=== PATIENT | male | born 1955 | race Caucasian/White ===

== ENCOUNTER 2017-02-03 13:44 | Emergency (ER) | payer BC ==
--- NOTE | 2017-02-03 14:30 | ERPHSYRPT ---
- History of Present Illness Time Seen by Provider: 02/03/17 14:14 Source: patient Exam Limitations: no limitations Patient Subjective Stated Complaint: states went off xanax recently and started on paxil last night. today feel nervous and b/p up at home. Triage Nursing Assessment: ambulated to room per self without difficulty. skin w/d, color normal, resp easy. mena without difficulty. chris. a/o times three. Physician History: The patient is a 62-year-old male complaining of feeling "bad" today. He's had some nausea. He feels a little bit uneasy. He took his blood pressure and it was elevated to 200/110. He's been taking Xanax 0.25 mg 3 times a day for several weeks due to increased stress. He saw his doctor who put him on paroxetine. He did not take any Xanax yesterday and took his first dose approximately last night. Today he doesn't feel well. He states that he panicked and came to the hospital. His past medical history is significant for anxiety, hypertension. Timing/Duration: today, improved Severity: moderate Modifying Factors: Improves With: nothing Associated Symptoms: nausea, other (anxiety) Allergies/Adverse Reactions: meperidine [From Demerol] Allergy (Verified 02/03/17 14:04) Penicillins Allergy (Verified 02/03/17 14:04) Sulfa (Sulfonamide Antibiotics) Allergy (Verified 02/03/17 14:04) Home Medications: Buspirone HCl 5 mg [Buspar 5 mg] 5 mg PO BID 02/03/17 [History] Carvedilol 12.5 mg [Coreg 12.5 mg] 12.5 mg PO BID 02/03/17 [History] Diltiazem HCl 120 mg [Cardizem CD 120 MG] 120 mg PO HS 02/03/17 [History] Meloxicam 15 mg [Meloxicam 15 MG] 15 mg PO DAILY 02/03/17 [History] Mv-Mn/FA/Lycopene/Lut/Hb#178 [Aubrey Multi For Men Tablet] 1 each PO DAILY [History] Paroxetine HCl [Paxil] 10 mg PO HS 02/03/17 [History] Hx Tetanus, Diphtheria Vaccination/Date Given: No Hx Influenza Vaccination/Date Given: No Hx Pneumococcal Vaccination/Date Given: No - Review of Systems Constitutional: No Fever, No Chills Eyes: No Symptoms Ears, Nose, & Throat: No Symptoms Respiratory: No Cough, No Dyspnea Cardiac: No Chest Pain, No Edema, No Syncope Abdominal/Gastrointestinal: Nausea Genitourinary Symptoms: No Dysuria Musculoskeletal: No Back Pain, No Neck Pain Skin: No Rash Psychological: Anxiety Endocrine: No Symptoms Hematologic/Lymphatic: No Symptoms Immunological/Allergic: No Symptoms All Other Systems: Reviewed and Negative - Past Medical History Pertinent Past Medical History: Yes Cardiac History: Hypertension Respiratory History: Emphysema Musculoskeletal History: Arthritis Psycho-Social History: Anxiety, Depression Male Reproductive Disorders: Prostate Problems - Past Surgical History Past Surgical History: Yes Other Surgical History: sinus surgery, testicle surgery - Social History Smoking Status: Former smoker Exposure to second hand smoke: No Drug Use: none Patient Lives Alone: Yes - Nursing Vital Signs Nursing Vital Signs: Initial Vital Signs Temperature 97.6 F 02/03/17 13:57 Pulse Rate 78 02/03/17 13:57 Respiratory Rate 15 02/03/17 13:57 Blood Pressure 166/89 02/03/17 13:57 O2 Sat by Pulse Oximetry 98 02/03/17 13:57 Pain Scale Pain Intensity 0 - Physical Exam SpO2: 98 Oxygen Delivery: Room Air - Course EKG Interpreted by Me: RATE, NORMAL AXIS, NORMAL INTERVALS, NORMAL QRS, NORMAL ST-T - Radiology Exams Chest X-ray Interpretation: Interpreted by me, Negative Ordered Tests: Active Orders 24 hr Category Date Time Status Paper Goods Machine Operator STAT Care 02/03/17 14:03 Active EKG-ER Only STAT Care 02/03/17 14:03 Active IV Insertion STAT Care 02/03/17 14:03 Active CHEST 2 VIEWS (PA AND LAT) Stat Exams 02/03/17 14:42 Taken CBC W DIFF Stat Lab 02/03/17 14:00 Completed CMP Stat Lab 02/03/17 14:00 Completed TROPONIN Q3H Lab 02/03/17 14:45 Completed TROPONIN Q3H Lab 02/03/17 17:45 Ordered TROPONIN Q3H Lab 02/03/17 20:45 Ordered TROPONIN Q3H Lab 02/03/17 23:45 Ordered TROPONIN Q3H Lab 02/04/17 02:45 Ordered Lab/Rad Data: Laboratory Result Diagrams 02/03/17 14:00 02/03/17 14:00 Laboratory Results 02/03/17 02/03/17 02/03/17 Range/Units 14:45 14:00 14:00 WBC 9.9 (4.0-10.5) K/mm3 RBC 5.42 (4.1-5.6) M/mm3 Hgb 15.9 (12.5-18.0) gm/dl Hct 47.3 (42-50) % MCV 87.3 (78-100) fl MCH 29.3 (26-32) pg MCHC 33.6 (32-36) g/dl RDW 13.0 (11.5-14.0) % Plt Count 272 (150-450) K/mm3 MPV 10.5 H (6-9.5) fl Gran % 75.1 H (36.0-66.0) % Lymphocytes % 18.7 L (24.0-44.0) % Monocytes % 5.4 (0.0-12.0) % Eosinophils % 0.4 (0.00-5.0) % Basophils % 0.4 (0.0-0.4) % Basophils # 0.04 (0-0.4) Sodium 138 (136-145) mEq/L Potassium 3.8 (3.5-5.1) mEq/L Chloride 103 (98-107) mEq/L Carbon Dioxide 24.6 (21-32) mEq/L Anion Gap 14.6 (5-15) MEQ/L BUN 16 (9-20) mg/dL Creatinine 0.98 (0.55-1.30) mg/dl Estimated GFR > 60 ML/MIN Glucose 145 H (70-110) MG/DL Calcium 8.9 (8.5-10.1) mg/dL Total Bilirubin 0.50 (0.2-1.0) mg/dL AST 18 (15-37) U/L ALT 16 (12-78) U/L Alkaline Phosphatase 81 (46-116) U/L Troponin I < 0.017 (0.000-0.056) ng/ml Serum Total Protein 7.6 (6.4-8.2) gm/dL Albumin 3.9 (3.4-5.0) g/dL - Progress Progress: unchanged - Departure Time of Disposition: 16:01 Departure Disposition: Home Clinical Impression: Anxiety Condition: Stable Critical Care Time: No Referrals: SANDHYA WESLEY MD [Primary Care Provider] - Additional Instructions: You have anxiety. Try taking your new medicine again tonight. You may also restart your Xanax at 1 or 2 times a day as needed. Follow-up with your doctor on Sunday.
[2017-02-03 14:55] LABS: BASOPHIL % 0.4 % (0.0-0.4); Eosinophil % 0.4 % (0.00-5.0); Granulocytes % 75.1 % (36.0-66.0); Lymphocytes % 18.7 % (24.0-44.0); Mean Cell Volume 87.3 fl (78-100); Mean Corpuscular Hemoglobin 29.3 pg (26-32); Mean Platelet Volume 10.5 fl (6-9.5); Monocytes % 5.4 % (0.0-12.0); Platelet Count 272 K/mm3 (150-450); Red Blood Count 5.42 M/mm3 (4.1-5.6); White Blood Count 9.9 K/mm3 (4.0-10.5)
[2017-02-03 15:03] LABS: ALBUMIN 3.9 g/dL (3.4-5.0); ALKALINE PHOSPHATASE 81 U/L (46-116); ANION GAP 14.6 MEQ/L (5-15); BLOOD UREA NITROGEN 16 mg/dL (9-20); CHLORIDE 103 mEq/L (98-107); Carbon Dioxide 24.6 mEq/L (21-32); Glucose 145 MG/DL (70-110); Potassium 3.8 mEq/L (3.5-5.1); SGOT/AST 18 U/L (15-37); SGPT/ALT 16 U/L (12-78); SODIUM 138 mEq/L (136-145); Total Protein 7.6 gm/dL (6.4-8.2)
[2017-02-03 15:57] VITALS: BP 152/82; PULSE 74
[2017-02-03 16:03] VITALS: O2SAT 98
--- NOTE | 2017-02-04 19:44 | XRAY ---
Indication: Hypertension. Comparison: None PA/lateral chest hyperinflated and clear. Heart is not enlarged. Vascularity normal. Bony thorax intact with mild spinal degenerative changes. Impression: Nonacute hyperinflated chest.
== END 2017-02-03 16:15 | disposition home or self-care (01) ==
LOC: ED 13:44
DX: F41.9 Anxiety disorder, unspecified (principal); R11.0 Nausea; I10 Essential (primary) hypertension; Z79.899 Other long term (current) drug therapy
CPT/HCPCS: 36000; 36415; 71020; 80053; 84484; 85025; 93005; 93041; 99284

== ENCOUNTER 2021-08-11 16:30 | Observation (INO) | payer BC, MEDICARE ==
[2021-08-11 17:41] LABS: Absolute Neutrophil Ct (ANC) 3.71 (1.4-6.9); Basophil (Absolute #) 0.03 (0-0.4); Eosinophil % 2.6 % (0.00-5.0); Eosinophil (Absolute #) 0.18 (0-0.5); Hematocrit 47.1 % (42-50); Hemoglobin 15.5 gm/dl (12.5-18.0); Lymphocyte (Absolute #) 2.28 (1.0-4.6); Lymphocytes % 32.8 % (24.0-44.0); Mean Cell Volume 93.3 fl (78-100); Mean Corpuscular Hemoglobin 30.7 pg (26-32); Mean Corpuscular Hgb Concent. 32.9 g/dl (32-36); Mean Platelet Volume 10.1 fl (7.5-11.0); Monocyte (Absolute #) 0.75 (0.0-1.3); Monocytes % 10.8 % (0.0-12.0); Neutrophil % 53.4 % (36.0-66.0); Platelet Count 245 K/mm3 (150-450); Red Blood Count 5.05 M/mm3 (4.1-5.6); Red Cell Distribution Width 13.1 % (11.5-14.0)
--- NOTE | 2021-08-11 17:47 | ERPHSYRPT ---
- History of Present Illness Time Seen by Provider: 08/11/21 16:40 Historian: patient Exam Limitations: no limitations Patient Subjective Stated Complaint: sharp left sided chest pain 10 minutes ago that lasted 5 minutes, resolved now. Triage Nursing Assessment: Presents to ED A & OX3, ambulates to ER bed 4. Placed in gown and on monitor. VSS, skin PWD. C/o left sided, non radiating chest pain that occured 10 mins prior to arrival and resolved within 5 minutes. Denies pain at time of arrival. States pain was sharp in nature, sees [facility]. Hx thyroid issues that presented at poss cardiac issues in the past which is why he sees [facility]. Denies surgical cardiac hx. No stents or pacemaker. Denies sob, nausea, or diaphoresis. 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 NSR noted on EKG. Physician History: Patient is a 66-year-old male presents to emergency department for evaluation of left-sided chest pain. Pain was present approximately 10 minutes prior to arrival. When pain started it lasted for approximately 5 minutes. Pain described as a sharp sensation that was well localized. No radiation. No associated nausea vomiting or diaphoresis. No fever no trauma. Symptoms were present were mild to moderate in intensity. No specific worsening or improving factors. Patient is now asymptomatic. No chest pain at this time. Patient den ies a cardiac history. No stents. No history of open heart surgery. Patient otherwise voices no other complaints or concerns at this time. Timing/Duration: today Activities at Onset: none Quality: sharpness Location: other (Left chest.) Chest Pain Radiation: no radiation Severity of Pain-Max: moderate Severity of Pain-Current: none Modifying Factors: Improves With: nothing Associated Symptoms: denies symptoms Prior Chest Pain/Cardiac Workup: no prior chest pain Nitro Today/Relief: no nitro taken today Aspirin Treatment Today: no aspirin today Allergies/Adverse Reactions: meperidine [From Demerol] Allergy (Verified 08/11/21 17:06) Penicillins Allergy (Verified 08/11/21 17:06) Sulfa (Sulfonamide Antibiotics) Allergy (Verified 08/11/21 17:06) Home Medications: Carvedilol 12.5 mg [Coreg 12.5 mg] 12.5 mg PO BID 02/03/17 [History] Meloxicam 15 mg [Meloxicam 15 MG] 15 mg PO DAILY 02/03/17 [History] Mv-Mn/Folic Acid/Lutein/Yvd466 [Aubrey Multi For Men Tablet] 1 each PO DAILY 02/03/17 [History] ALPRAZolam [Alprazolam] 0.25 mg PO DAILY 08/11/21 [History] Amlodipine Besylate 2.5 mg PO BID 08/11/21 [History] Atorvastatin Calcium 20 mg PO DAILY 08/11/21 [History] Famotidine 20 mg [Pepcid 20 MG] 20 mg PO BID 08/11/21 [History] Loratadine 10 mg [Claritin 10 mg] 10 mg PO DAILY 08/11/21 [History] Topiramate 25 mg [Topamax 25 MG] 25 mg PO BID 08/11/21 [History] Hx Tetanus, Diphtheria Vaccination/Date Given: No Hx Influenza Vaccination/Date Given: No Hx Pneumococcal Vaccination/Date Given: No Travel Risk - International Travel Have you traveled outside of the country in past 3 weeks: No - Coronavirus Screening Are you exhibiting any of the following symptoms?: No - Vaccine Status Have you recieved a Covid-19 vaccination: No - Review of Systems Constitutional: No Symptoms, No Fever, No Chills Eyes: No Symptoms Ears, Nose, & Throat: No Symptoms Respiratory: No Symptoms, No Cough, No Dyspnea Cardiac: No Symptoms, No Chest Pain, No Edema, No Syncope Abdominal/Gastrointestinal: No Symptoms, No Abdominal Pain, No Nausea, No Vomiting, No Diarrhea Genitourinary Symptoms: No Symptoms, No Dysuria Musculoskeletal: No Symptoms, No Back Pain, No Neck Pain Skin: No Symptoms, No Rash Neurological: No Symptoms, No Dizziness, No Focal Weakness, No Sensory Changes Psychological: No Symptoms Endocrine: No Symptoms Hematologic/Lymphatic: No Symptoms Immunological/Allergic: No Symptoms All Other Systems: Reviewed and Negative - Past Medical History Pertinent Past Medical History: Yes Neurological History: No Pertinent History Cardiac History: Hypertension Respiratory History: Emphysema Musculoskeletal History: Arthritis Psycho-Social History: Anxiety, Depression Male Reproductive Disorders: Prostate Problems - Past Surgical History Past Surgical History: Yes Neuro Surgical History: No Pertinent History Cardiac: No Pertinent History Respiratory: No Pertinent History Gastrointestinal: No Pertinent History Genitourinary: No Pertinent History Other Surgical History: sinus surgery, testicle surgery - Social History Smoking Status: Former smoker Exposure to second hand smoke: No Drug Use: none Patient Lives Alone: Yes - Nursing Vital Signs Nursing Vital Signs: Initial Vital Signs Temperature 97.9 F 08/11/21 16:35 Pulse Rate 71 08/11/21 16:35 Respiratory Rate 18 08/11/21 16:35 Blood Pressure 165/81 08/11/21 16:35 O2 Sat by Pulse Oximetry 100 08/11/21 16:35 Pain Scale Pain Intensity 0 - Physical Exam General Appearance: no apparent distress, alert Eye Exam: PERRL/EOMI, eyes nml inspection Ears, Nose, Throat Exam: normal ENT inspection, moist mucous membranes Neck Exam: normal inspection, non-tender, supple, full range of motion Respiratory Exam: normal breath sounds, lungs clear, airway intact, No chest tenderness, No respiratory distress Cardiovascular Exam: regular rate/rhythm, normal heart sounds, normal peripheral pulses Gastrointestinal/Abdomen Exam: soft, normal bowel sounds, No tenderness, No mass Back Exam: normal inspection, No CVA tenderness, No vertebral tenderness Extremity Exam: normal inspection, normal range of motion, pelvis stable Neurologic Exam: alert, oriented x 3, cooperative, hand coper II-XII nml as tested, normal mood/affect, sensation nml, No motor deficits Skin Exam: normal color, warm, dry Lymphatic Exam: No adenopathy SpO2 Interpretation: normal SpO2: 96 O2 Delivery: Room Air - Course Nursing assessment & vital signs reviewed: Yes EKG Interpreted by Me: RATE (70), Sinus Rhythm, NORMAL AXIS, NORMAL INTERVALS - Radiology Exams Chest X-ray Interpretation: Interpreted by me (Normal lungs heart and bony thorax. Degenerative changes of spine observed.) Ordered Tests: Active Orders 24 hr Category Date Time Status Advertising Associate STAT Care 08/11/21 17:27 Active EKG-ER Only STAT Care 08/11/21 17:26 Active IV Insertion STAT Care 08/11/21 17:26 Active Pulse Oximetry (ED) STAT Care 08/11/21 17:26 Active CHEST 1 VIEW (PORTABLE) Stat Exams 08/11/21 17:27 Taken CBC W DIFF Stat Lab 08/11/21 17:30 Completed CMP Stat Lab 08/11/21 17:30 Completed NT PRO BNP Stat Lab 08/11/21 17:30 Completed TROPONIN Q3H Lab 08/11/21 17:30 Completed TROPONIN Q3H Lab 08/11/21 20:30 Ordered TROPONIN Q3H Lab 08/11/21 23:30 Ordered TROPONIN Q3H Lab 08/12/21 02:30 Ordered TROPONIN Q3H Lab 08/12/21 05:30 Ordered Transfer Order Routine Transfer 08/11/21 Ordered Medication Summary Discontinued Medications Generic Name Dose Route Start Last Admin Trade Name Tess PRN Reason Stop Dose Admin Aspirin 324 mg 08/11/21 18:38 08/11/21 18:54 Aspirin 81 Mg Tab.Chew PO 08/11/21 18:39 324 mg STAT ONE Administration Nitroglycerin 1 gm 08/11/21 18:38 08/11/21 18:54 Nitroglycerin 1 Gm Packet TOP 08/11/21 18:39 1 gm STAT ONE Administration Nitroglycerin Confirm 08/11/21 18:54 Nitroglycerin 1 Gm Packet Administered 08/11/21 18:55 Dose 1 gm .ROUTE .STK-MED ONE Lab/Rad Data: Laboratory Result Diagrams 08/11/21 17:30 08/11/21 17:30 Laboratory Results 08/11/21 08/11/21 08/11/21 Range/Units 18:40 17:30 17:30 WBC (4.0-10.5) K/mm3 RBC (4.1-5.6) M/mm3 Hgb (12.5-18.0) gm/dl Hct (42-50) % MCV (78-100) fl MCH (26-32) pg MCHC (32-36) g/dl RDW (11.5-14.0) % Plt Count (150-450) K/mm3 MPV (7.5-11.0) fl Gran % (36.0-66.0) % Eos # (Auto) (0-0.5) Absolute Lymphs (auto) (1.0-4.6) Absolute Monos (auto) (0.0-1.3) Lymphocytes % (24.0-44.0) % Monocytes % (0.0-12.0) % Eosinophils % (0.00-5.0) % Basophils % (0.0-0.4) % Absolute Granulocytes (1.4-6.9) Basophils # (0-0.4) Sodium 141 (137-145) mmol/L Potassium 4.2 (3.5-5.1) mmol/L Chloride 106 (98-107) mmol/L Carbon Dioxide 26 (22-30) mmol/L Anion Gap 13.1 (5-15) MEQ/L BUN 24 H (9-20) mg/dL Creatinine 0.94 (0.66-1.25) mg/dL Estimated GFR > 60.0 ML/MIN Glucose 90 (74-106) mg/dL Calcium 9.3 (8.4-10.2) mg/dL Total Bilirubin 0.50 (0.2-1.3) mg/dL AST 23 (17-59) U/L ALT 20 (0-50) U/L Alkaline Phosphatase 84 (38-126) U/L Troponin I < 0.012 (0.000-0.034) ng/mL NT-Pro-B Natriuret Pep 63.0 (0-900) pg/mL Serum Total Protein 7.1 (6.3-8.2) g/dL Albumin 4.4 (3.5-5.0) g/dL Influenza Type A Ag NEGATIVE (NEGATIVE) Influenza Type B Ag NEGATIVE (NEGATIVE) RSV (PCR) NEGATIVE (Negative) SARS-CoV-2 (PCR) NEGATIVE (NEGATIVE) 08/11/21 Range/Units 17:30 WBC 7.0 (4.0-10.5) K/mm3 RBC 5.05 (4.1-5.6) M/mm3 Hgb 15.5 (12.5-18.0) gm/dl Hct 47.1 (42-50) % MCV 93.3 (78-100) fl MCH 30.7 (26-32) pg MCHC 32.9 (32-36) g/dl RDW 13.1 (11.5-14.0) % Plt Count 245 (150-450) K/mm3 MPV 10.1 (7.5-11.0) fl Gran % 53.4 (36.0-66.0) % Eos # (Auto) 0.18 (0-0.5) Absolute Lymphs (auto) 2.28 (1.0-4.6) Absolute Monos (auto) 0.75 (0.0-1.3) Lymphocytes % 32.8 (24.0-44.0) % Monocytes % 10.8 (0.0-12.0) % Eosinophils % 2.6 (0.00-5.0) % Basophils % 0.4 (0.0-0.4) % Absolute Granulocytes 3.71 (1.4-6.9) Basophils # 0.03 (0-0.4) Sodium (137-145) mmol/L Potassium (3.5-5.1) mmol/L Chloride (98-107) mmol/L Carbon Dioxide (22-30) mmol/L Anion Gap (5-15) MEQ/L BUN (9-20) mg/dL Creatinine (0.66-1.25) mg/dL Estimated GFR ML/MIN Glucose (74-106) mg/dL Calcium (8.4-10.2) mg/dL Total Bilirubin (0.2-1.3) mg/dL AST (17-59) U/L ALT (0-50) U/L Alkaline Phosphatase (38-126) U/L Troponin I (0.000-0.034) ng/mL NT-Pro-B Natriuret Pep (0-900) pg/mL Serum Total Protein (6.3-8.2) g/dL Albumin (3.5-5.0) g/dL Influenza Type A Ag (NEGATIVE) Influenza Type B Ag (NEGATIVE) RSV (PCR) (Negative) SARS-CoV-2 (PCR) (NEGATIVE) - Progress Progress: improved Air Movement: good Progress Note: Pulmonary work-up is unremarkable. Chest x-ray negative. EKG normal sinus rhythm. Initial troponin negative. Patient has a significant history for hypercholesterolemia, elevated blood pressure and advanced age. In light of patient's risk factors we will admit patient for cardiac rule out. Case discussed with Dr. Wesley who accepts admission to observation. Plan of care discussed with patient. He agrees to admission [facility] for further evaluation and treatment. Aspirin and nitroglycerin paste administered. Portions of this note were created with voice recognition technology. There may be grammatical, spelling, punctuation or sound alike errors 08/11/21 20:01 Blood Culture(s) Obtained: No Antibiotics given: No Discussed with : Genevieve Will see patient in: hospital (observation) Counseled pt/family regarding: lab results, diagnosis, rad results - Departure Departure Disposition: Observation Clinical Impression: ACS (acute coronary syndrome), Chest pain Condition: Stable Critical Care Time: No Referrals: SANDHYA WESLEY MD [Primary Care Provider] - Follow up/PCP as directed
[2021-08-11 17:58] LABS: ALBUMIN 4.4 g/dL (3.5-5.0); ALKALINE PHOSPHATASE 84 U/L (38-126); ANION GAP 13.1 MEQ/L (5-15); BLOOD UREA NITROGEN 24 mg/dL (9-20); CHLORIDE 106 mmol/L (98-107); Calcium 9.3 mg/dL (8.4-10.2); Carbon Dioxide 26 mmol/L (22-30); Creatinine 1 0.94 mg/dL (0.66-1.25); EST GLOMERULAR FILTRATION RATE > 60.0 ML/MIN; Glucose 90 mg/dL (74-106); Potassium 4.2 mmol/L (3.5-5.1); SGOT/AST 23 U/L (17-59); SGPT/ALT 20 U/L (0-50); SODIUM 141 mmol/L (137-145); Total Protein 7.1 g/dL (6.3-8.2)
[2021-08-11] MEDS ORDERED: BABY ASPIRIN 81 MG CHEW PO ONE (18:38)
[2021-08-11] MEDS ORDERED: NITRO-BID 2% UD PACKETS TOP ONE (18:38)
[2021-08-11] MEDS ORDERED: NITRO-BID 2% UD PACKETS ONE (18:54)
[2021-08-11 19:24] LABS: INFLUENZA A NEGATIVE (NEGATIVE); INFLUENZA B NEGATIVE (NEGATIVE); RESPIRATORY SYNCTIAL VIRUS NEGATIVE (Negative); SARS-CoV-2 Xpert Express NEGATIVE (NEGATIVE)
[2021-08-11] MEDS ORDERED: Senokot-S Tablet PO PRN (20:20)
[2021-08-11] MEDS ORDERED: Zofran 4 MG/2 ML VIAL IV PRN (20:20)
[2021-08-11] MEDS ORDERED: TYLENOL 325 MG PO PRN (20:20)
[2021-08-11] MEDS ORDERED: MILK OF MAGNESIA 30 ML PO PRN (20:20)
[2021-08-11] MEDS ORDERED: MAALOX ES 30 ML UNIT DOSE PO PRN (20:20)
[2021-08-11] MEDS ORDERED: xanAX 0.25 MG PO SCH (22:00)
[2021-08-11] MEDS ORDERED: TYLENOL EXTRA STRENGTH 500 MG PO SCH (22:00)
[2021-08-11] MEDS: MELOXICAM PO SCH (22:04)
[2021-08-11] MEDS: COREG 12.5 MG PO SCH (22:04)
[2021-08-11] MEDS: Pepcid 20 MG PO SCH (22:05)
[2021-08-11] MEDS: TOPIRAMATE PO SCH (22:05)
[2021-08-11] MEDS: NORVASC 5 MG PO SCH (22:05)
[2021-08-12 05:19] LABS: Risk Ratio 3.5
[2021-08-12 08:04] VITALS: BP 109/68; PULSE 71; O2SAT 93
--- NOTE | 2021-08-12 08:41 | XRAY ---
Indication: Chest pain. Comparison: April 05, 2017. Portable apical lordotic chest remains hyperinflated and clear. Heart not enlarged. Bony thorax intact again with mild osteopenia and degenerative changes. No new/acute findings.
[2021-08-12] MEDS: NORVASC 5 MG PO SCH (09:20)
[2021-08-12] MEDS: COREG 12.5 MG PO SCH (09:21)
[2021-08-12] MEDS: TOPIRAMATE PO SCH (09:21)
[2021-08-12] MEDS: MELOXICAM PO SCH (09:21)
[2021-08-12] MEDS: THERAGRAN MULTIVITAMIN PO SCH ×2 (09:21→09:26)
[2021-08-12] MEDS: Pepcid 20 MG PO SCH (09:21)
[2021-08-12] MEDS ORDERED: LUTEIN PO SCH (10:00)
[2021-08-12] MEDS ORDERED: [UNRECOGNIZED DRUG - OTHER] PO SCH (10:00)
[2021-08-12] MEDS ORDERED: ZOCOR 20MG PO SCH (10:00)
[2021-08-12] MEDS ORDERED: MV MN PO SCH (10:00)
[2021-08-12] MEDS ORDERED: CLARITIN 10 MG PO SCH (10:00)
[2021-08-12] MEDS ORDERED: NON-FORMULARY ITEM (Atorvastatin Calcium [Atorvastatin Calcium] 20 MG Tablet) PO SCH (10:00)
[2021-08-12] MEDS ORDERED: FOLIC ACID PO SCH (10:00)
== END 2021-08-12 12:04 | disposition home or self-care (01) ==
LOC: ED 16:30 → MED SURG 20:01
PROVIDERS: ADMIT General Practice; ATTEND General Practice
DX: R07.9 Chest pain, unspecified (principal); I10 Essential (primary) hypertension; E78.00 Pure hypercholesterolemia, unspecified; Z79.899 Other long term (current) drug therapy
CPT/HCPCS: 0241U; 36000; 36415; 71045; 80053; 80061; 83721; 83880; 84484; 85025; 93005; 93041; 93268; 94760; 99284; G0378; A9270-GY